=== PATIENT | male | born 1960 | race Caucasian/White ===

== ENCOUNTER 2017-10-03 20:42 | Emergency (ER) | payer OTHER ==
[~2017-10-03] VITALS: Ht 175.3 cm; Wt 70.7 kg
[~2017-10-03 20:42] MED LIST: ASPIR 8181 M1 PO; Aspirin E.C. PO; CYANOCOBALAM1000 MCG PO; Colace PO; FISH OIL 1,0001 EAC7 PO; GLUCOSAMINE &1 EAC1 PO; Keflex PO; MEN'S 50+ DAIL1 EACH PO; PROAIR HFA8.5 GM IH; SPIRIVA1 INHALATI IH; ULTRAM50 MG PO; oxyCODONE PO
[2017-10-03] MEDS ORDERED: TRAMADOL HCL50 MG PO (22:07)
[2017-10-03 23:51] VITALS: BP 157/90
== END 2017-10-04 00:44 | disposition home or self-care (01) ==
LOC: EME 20:42
PROC: 2W3CX1Z Immobilization of Right Lower Arm using Splint (ICD-10-PCS; principal; 2017-10-03)
DX: S62.326A Displaced fracture of shaft of fifth metacarpal bone, right hand, initial encounter for closed fracture (principal); W22.01XA Walked into wall, initial encounter; F17.200 Nicotine dependence, unspecified, uncomplicated
CPT/HCPCS: 73130; 99281; 99284

== ENCOUNTER 2017-10-13 11:06 | Inpatient (IN) | payer OTHER ==
[~2017-10-13] VITALS: Ht 175.3 cm; Wt 67.7 kg
[~2017-10-13 11:06] MED LIST changes: +TRAMADOL HCL50 MG PO
[2017-10-13 12:07] LABS: BASOPHIL (%) 0.5 % (0-1); EOSINOPHIL (%) 2.9 % (0-5); EOSINOPHIL COUNT 0.2 K/uL (0-0.3); HEMATOCRIT 41.9 % (38.0-50.0); HEMOGLOBIN 14.7 G/DL (12.5-16.6); IMMATURE GRANULOCYTE (%) 0.5 % (0.0-0.7); LYMPHOCYTE (%) 29.6 % (15-42); MCH 34.9 PG (29.0-34.0); MCHC 35.1 G/DL (30.0-36.0); MCV 99.5 FL (86-99); MONOCYTE (%) 8.6 % (3-12); MONOCYTE COUNT 0.6 K/uL (0-0.8); NEUTROPHIL (%) 57.9 % (45-76); NEUTROPHIL COUNT 3.9 K/uL (1.8-6.4); PLATELET COUNT 188 K/uL (156-360); RBC DIS.WIDTH-CV 11.4 % (11.8-14.6); RBC DIS.WIDTH-SD 42.2 % (39-53); RED BLOOD COUNT 4.21 M/uL (4.00-5.50); WHITE BLOOD COUNT 6.6 K/uL (4.1-10.2)
[2017-10-13 12:17] LABS: CHLORIDE 104 mEq/L (99-109); POTASSIUM 4.6 mEq/L (3.7-5.4); SODIUM 137 mEq/L (136-147)
[2017-10-13 12:19] LABS: GLUCOSE 88 mg/dL (70-99)
[2017-10-13 12:22] LABS: CREATININE 1.1 mg/dL (0.6-1.3); GFR ESTIMATE (CALCULATED) > 59 mL/min/ (58.99-99999); SERUM ETHYL ALCOHOL < 10 mg/dL
[2017-10-13 12:23] LABS: UREA NITROGEN (BUN) 16 mg/dL (9-23)
[2017-10-13 14:37] LABS: APPEARANCE CLEAR ((CLEAR)); BILIRUBIN NEGATIVE; BLOOD NEGATIVE; COLOR YELLOW ((YELLOW)); GLUCOSE (STRIP) NEGATIVE; KETONES NEGATIVE; LEUKOCYTES NEGATIVE; NITRITE NEGATIVE; PROTEIN (STRIP) NEGATIVE; SPECIFIC GRAVITY 1.009 (1.000-1.030); UROBILINOGEN 0.2 MG/DL (0.2-1.0)
[2017-10-13 14:49] LABS: AMPHETAMINE NEGATIVE (500 ng/mL); BARBITURATES NEGATIVE (200 ng/mL); BENZODIAZEPINES NEGATIVE (150 ng/mL); BUPRENORPHINE NEGATIVE (10 ng/mL); COCAINE PRESUMPTIVE POSITIVE (150 ng/mL); METHADONE NEGATIVE (200 ng/mL); METHAMPHETAMINE NEGATIVE (500 ng/mL); OPIATES (MORPHINE) NEGATIVE (100 ng/mL); OXYCODONE PRESUMPTIVE POSITIVE (100 ng/mL); PHENCYCLIDINE NEGATIVE (25 ng/mL); PROPOXYPHENE NEGATIVE (300 ng/mL); THC CANNABINOIDS PRESUMPTIVE POSITIVE (50 ng/mL); TRICYCLIC ANTIDEPRESSANTS NEGATIVE (300 ng/mL)
[2017-10-13 15:01] VITALS: BP 128/79
[2017-10-13] MEDS ORDERED: THORAZINE200 MG PO (15:11)
[2017-10-13] MEDS ORDERED: LITHOBID300 MG PO (15:11)
[2017-10-13] MEDS ORDERED: XANAX0.5 MG PO (15:13)
[2017-10-13 15:15] VITALS: BP 128/79
[2017-10-14 07:56] VITALS: BP 130/68
[2017-10-14 14:33] VITALS: BP 112/56
[2017-10-15 07:28] VITALS: BP 147/86
[2017-10-15 10:08] LABS: LITHIUM 0.8 MEQ/L (0.6-1.2)
[2017-10-15 10:22] LABS: FOLIC ACID (FOLATE) 15.8 NG/ML (5.0-22.0)
[2017-10-15 15:10] VITALS: BP 108/61
[2017-10-16 07:35] VITALS: BP 103/57
[2017-10-16 15:09] VITALS: BP 107/55
[2017-10-17 08:00] VITALS: BP 95/65
[2017-10-17 15:58] VITALS: BP 135/63
[2017-10-18 07:51] VITALS: BP 91/56
[2017-10-18] MEDS ORDERED: THORAZINE200 MG PO (12:08)
== END 2017-10-18 13:36 | disposition home or self-care (01) | DRG 885 ==
LOC: EME 11:06 → 1WEST 12:15 → EDOF 12:15 → ENRESERV 13:45 → 1WEST 14:28
PROVIDERS: Emergency Medicine; Psychiatry & Neurology Psychiatry
DX: F31.9 Bipolar disorder, unspecified (principal); F14.20 Cocaine dependence, uncomplicated; F10.20 Alcohol dependence, uncomplicated; Z59.0 Homelessness; R45.851 Suicidal ideations; K59.00 Constipation, unspecified; F17.200 Nicotine dependence, unspecified, uncomplicated; F12.90 Cannabis use, unspecified, uncomplicated
CPT/HCPCS: 80048; 80178; 81003; 82607; 82746; 84443; 84999; 85025; 90837; 94640; 94640 76; 97150 GO; 97165 GO; 97530 GO; 99202; 99281; 99285; G0480; Q0161; Q0177

== ENCOUNTER 2017-10-26 03:23 | Inpatient (IN) | payer OTHER ==
[~2017-10-26] VITALS: Ht 182.9 cm; Wt 73.0 kg
[~2017-10-26 03:23] MED LIST changes: +LITHOBID300 MG PO; +THORAZINE200 MG PO; +XANAX0.5 MG PO
[2017-10-26 04:58] LABS: AMPHETAMINE NEGATIVE (500 ng/mL); BARBITURATES NEGATIVE (200 ng/mL); BENZODIAZEPINES PRESUMPTIVE POSITIVE (150 ng/mL); BUPRENORPHINE NEGATIVE (10 ng/mL); COCAINE PRESUMPTIVE POSITIVE (150 ng/mL); METHADONE NEGATIVE (200 ng/mL); METHAMPHETAMINE NEGATIVE (500 ng/mL); OPIATES (MORPHINE) NEGATIVE (100 ng/mL); OXYCODONE NEGATIVE (100 ng/mL); PHENCYCLIDINE NEGATIVE (25 ng/mL); PROPOXYPHENE NEGATIVE (300 ng/mL); THC CANNABINOIDS PRESUMPTIVE POSITIVE (50 ng/mL); TRICYCLIC ANTIDEPRESSANTS NEGATIVE (300 ng/mL)
[2017-10-26 05:09] LABS: HEMATOCRIT 38.4 % (38.0-50.0); HEMOGLOBIN 13.7 G/DL (12.5-16.6); MCH 35.1 PG (29.0-34.0); MCHC 35.7 G/DL (30.0-36.0); MCV 98.5 FL (86-99); PLATELET COUNT 169 K/uL (156-360); RBC DIS.WIDTH-CV 11.3 % (11.8-14.6); RBC DIS.WIDTH-SD 41.1 % (39-53); WHITE BLOOD COUNT 6.2 K/uL (4.1-10.2)
[2017-10-26 05:29] LABS: CHLORIDE 106 mEq/L (99-109); POTASSIUM 4.3 mEq/L (3.7-5.4); SODIUM 138 mEq/L (136-147)
[2017-10-26 05:31] LABS: GLUCOSE 94 mg/dL (70-99)
[2017-10-26 05:34] LABS: SERUM ETHYL ALCOHOL < 10 mg/dL
[2017-10-26 05:35] LABS: CREATININE 1.1 mg/dL (0.6-1.3); GFR ESTIMATE (CALCULATED) > 59 mL/min/ (58.99-99999)
[2017-10-26 05:36] LABS: UREA NITROGEN (BUN) 20 mg/dL (9-23)
[2017-10-26 05:45] LABS: BENZODIAZEPINES, URINE SCREEN POSITIVE (200 ng/mL)
[2017-10-26] MEDS ORDERED: PROZAC10 MG PO (07:39)
[2017-10-26] MEDS ORDERED: XANAX0.25 MG PO (07:40)
[2017-10-26 12:08] VITALS: BP 129/78
[2017-10-26 16:14] VITALS: BP 142/79
[2017-10-27 08:17] VITALS: BP 99/57
[2017-10-27 12:23] VITALS: BP 103/57
[2017-10-27 15:37] VITALS: BP 126/62
[2017-10-28 08:01] VITALS: BP 119/69
[2017-10-28] MEDS ORDERED: DESYREL100 MG PO (09:37)
== END 2017-10-28 13:31 | disposition home or self-care (01) | DRG 885 ==
LOC: EME → EDBD 03:23 → EME 03:23 → EDOF 06:54 → 1WEST 06:54 → ENRESERV 09:42 → EDOF 10:08 → 1WEST 10:26
PROVIDERS: Emergency Medicine
DX: F31.9 Bipolar disorder, unspecified (principal); F43.23 Adjustment disorder with mixed anxiety and depressed mood; F14.20 Cocaine dependence, uncomplicated; J43.9 Emphysema, unspecified; R45.851 Suicidal ideations; F10.10 Alcohol abuse, uncomplicated; F12.90 Cannabis use, unspecified, uncomplicated; F17.200 Nicotine dependence, unspecified, uncomplicated; Z59.0 Homelessness; Z76.5 Malingerer [conscious simulation]; Z87.442 Personal history of urinary calculi; Z79.82 Long term (current) use of aspirin
CPT/HCPCS: 80048; 84999; 85027; 90839; 94640; 94640 76; 99202; 99281; 99284; G0480; Q0161; Q0177

== ENCOUNTER 2017-11-18 02:28 | Emergency (ER) | payer OTHER ==
[~2017-11-18] VITALS: Ht 175.3 cm; Wt 73.1 kg
[~2017-11-18 02:28] MED LIST changes: +DESYREL100 MG PO; +PROZAC10 MG PO; +XANAX0.25 MG PO
[2017-11-18 04:54] LABS: BASOPHIL (%) 0.7 % (0-1); BASOPHIL COUNT 0.1 K/uL (0-0.1); EOSINOPHIL (%) 3.6 % (0-5); EOSINOPHIL COUNT 0.3 K/uL (0-0.3); HEMATOCRIT 40.9 % (38.0-50.0); HEMOGLOBIN 14.5 G/DL (12.5-16.6); IMMATURE GRANULOCYTE (%) 0.6 % (0.0-0.7); LYMPHOCYTE (%) 23.4 % (15-42); LYMPHOCYTE COUNT 1.6 K/uL (1.0-2.8); MCH 34.1 PG (29.0-34.0); MCHC 35.5 G/DL (30.0-36.0); MCV 96.2 FL (86-99); MONOCYTE (%) 5.7 % (3-12); MONOCYTE COUNT 0.4 K/uL (0-0.8); NEUTROPHIL COUNT 4.6 K/uL (1.8-6.4); PLATELET COUNT 167 K/uL (156-360); RBC DIS.WIDTH-CV 10.9 % (11.8-14.6); RBC DIS.WIDTH-SD 39.1 % (39-53); RED BLOOD COUNT 4.25 M/uL (4.00-5.50)
[2017-11-18 05:11] LABS: ALBUMIN 4.2 g/dL (3.2-4.8); CHLORIDE 104 mEq/L (99-109); POTASSIUM 4.7 mEq/L (3.7-5.4); SODIUM 139 mEq/L (136-147)
[2017-11-18 05:14] LABS: GLUCOSE 134 mg/dL (70-99); TOTAL PROTEIN 7.3 g/dL (6.4-8.3)
[2017-11-18 05:15] LABS: TOTAL BILIRUBIN 0.4 mg/dL (0.0-1.0)
[2017-11-18 05:16] LABS: SERUM ETHYL ALCOHOL < 10 mg/dL
[2017-11-18 05:17] LABS: ALKALINE PHOSPHATASE 80 IU/L (3-129); GFR ESTIMATE (CALCULATED) > 59 mL/min/ (58.99-99999)
[2017-11-18 05:18] LABS: UREA NITROGEN (BUN) 18 mg/dL (9-23)
[2017-11-18 05:19] LABS: AST (GOT) 27 IU/L (2-34)
[2017-11-18 05:20] LABS: ALT (GPT) 35 IU/L (3-49)
[2017-11-18] MEDS ORDERED: PERCOCET 5/31 TABLET PO (05:38)
[2017-11-18] MEDS ORDERED: AUGMENTIN875 MG PO (05:38)
[2017-11-18] MEDS ORDERED: ZITHROMAX Z-PA250 MG PO (06:04)
[2017-11-18 06:20] VITALS: BP 135/80
== END 2017-11-18 06:20 | disposition home or self-care (01) ==
LOC: EME 02:28
PROVIDERS: Emergency Medicine
DX: R51 Headache (principal); J44.9 Chronic obstructive pulmonary disease, unspecified; F31.9 Bipolar disorder, unspecified; F41.9 Anxiety disorder, unspecified; Z87.442 Personal history of urinary calculi; F17.200 Nicotine dependence, unspecified, uncomplicated
CPT/HCPCS: 70450; 80053; 85025; 93005; 99281; 99285; G0480; J1100; J1200; J1885; J2765; J7030